=== PATIENT | female | born 1995 ===

== ENCOUNTER 2021-11-02 16:22 | Outpatient (CLI) | payer OTHER | END 2021-11-02 17:19 | disposition home or self-care (01) | LOC: PRENATAL 16:22 | PROVIDERS: ATTEND Obstetrics & Gynecology Maternal & Fetal Medicine | DX: O35.0XX0 Maternal care for (suspected) central nervous system malformation in fetus, not applicable or unspecified (principal); O35.3XX0 Maternal care for (suspected) damage to fetus from viral disease in mother, not applicable or unspecified ==

== ENCOUNTER 2022-01-21 03:48 | Inpatient (IN) | payer OTHER ==
[~2022-01-21] VITALS: Ht 160 cm; Wt 54.4 kg
[2022-01-21] MEDS ORDERED: PRENATAL TABLE1 EAC1 PO (05:55)
== END 2022-01-24 09:23 | disposition home or self-care (01) | DRG 833 ==
LOC: OBS/DEL 03:48 → OB/GYN 09:48 → LDR 09:48 → OB/GYN 10:43
PROVIDERS: ADMIT Obstetrics & Gynecology; ATTEND Obstetrics & Gynecology
PROC: 4A1HXCZ Monitoring of Products of Conception, Cardiac Rate, External Approach (ICD-10-PCS; principal; 2022-01-21)
PROC: BY4FZZZ Ultrasonography of Third Trimester, Single Fetus (ICD-10-PCS; 2022-01-21)
DX: O47.03 False labor before 37 completed weeks of gestation, third trimester (principal); Z3A.32 32 weeks gestation of pregnancy; Z20.822 Contact with and (suspected) exposure to COVID-19

== ENCOUNTER 2022-02-27 08:53 | Inpatient (IN) | payer OTHER ==
[~2022-02-27] VITALS: Ht 160 cm; Wt 59.0 kg
[~2022-02-27 08:53] MED LIST: PRENATAL TABLE1 EAC1 PO
[2022-02-27] MEDS ORDERED: PRENATAL TABLE1 EAC1 (09:02)
[2022-02-27] MEDS ORDERED: AMPICILLIN SOD500 MG (09:02)
== END 2022-03-01 11:04 | disposition home or self-care (01) | DRG 807 ==
LOC: OB/GYN 08:53 → LDR 08:53 → OB/GYN 16:42
PROVIDERS: ADMIT Obstetrics & Gynecology; ATTEND Obstetrics & Gynecology
PROC: 10E0XZZ Delivery of Products of Conception, External Approach (ICD-10-PCS; principal; 2022-02-27)
PROC: 0KQM0ZZ Repair Perineum Muscle, Open Approach (ICD-10-PCS; 2022-02-27)
PROC: 4A1HXCZ Monitoring of Products of Conception, Cardiac Rate, External Approach (ICD-10-PCS; 2022-02-27)
DX: O70.1 Second degree perineal laceration during delivery (principal); Z37.0 Single live birth; O99.820 Streptococcus B carrier state complicating pregnancy; Z3A.38 38 weeks gestation of pregnancy; Z20.822 Contact with and (suspected) exposure to COVID-19